=== PATIENT | male | born 1990 | race Caucasian/White ===

== ENCOUNTER 2021-07-04 16:22 | Emergency (ER) | payer MEDICAID, SELFPAY ==
[2021-07-04] VITALS (8 sets, daily range): BP systolic 140–161; BP diastolic 83–102; PULSE 71–106; RESP 14–18; TEMP 36.4–36.6; O2SAT 95–98; BMI 36.3
--- NOTE | 2021-07-04 18:05 | EKG12_ITS ---
Test Reason : MEDICAL CLEARANCE Blood Pressure : / mmHG Vent. Rate : 086 BPM Atrial Rate : 086 BPM P-R Int : 140 ms QRS Dur : 096 ms QT Int : 366 ms P-R-T Axes : 040 078 036 degrees QTc Int : 437 ms Normal sinus rhythm Normal ECG Confirmed by CHAGO BANKS, VARSHA ([id number]), online editor KARELY DOHETRY ([id number]) on 07/08/2021 9:12:13 AM Referred By: Confirmed By:VARSHA ANDERS MD
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
[2021-07-04 20:14] LABS: Absolute Lymphocyte Count 2.51 X10^3/uL (0.83-4.51); Absolute Neutrophil Count 5.7 X10^3/uL (2.0-7.7); Basophil# 0.04 X10^3/uL; Basophil% 0.5 % (0-1); Eosinophil# 0.23 X10^3/uL; Eosinophils% 2.6 % (0-5); Hematocrit 45.1 % (40-54); Hemoglobin 14.3 g/dL (13.0-16.5); Lymphocyte # 2.51 X10^3/ul (0.83-4.51); Lymphocyte % 28.3 % (19-41); Mean Corp Hgb Conc 31.7 g/dL (32-36); Mean Corpuscular Hgb 27.5 pg (27.0-32.0); Mean Corpuscular Volume 86.7 fL (80-94); Mean Platelet Vol. 11.2 fl (6.2-12.0); Monocyte% 4.5 % (0-10); NRBC Flagged by Analyzer 0 % (0-5); Neutrophil # 5.65 X10^3/uL (2.7-7.7); Neutrophil % 63.8 % (47-70); Platelet Count 293 K/mm3 (150-450); RBC Distribution Width SD 44.5 fl (35.1-43.9); White Blood Count 8.9 K/mm3 (4.4-11.0)
[2021-07-04 20:20] LABS: AST(SGOT) 203 U/L (15-37); Alanine Aminotransfer ALT/SGPT 207 U/L (16-61); Alkaline Phosphatase 114 U/L (45-117); Anion Gap 6 (5-15); BUN 8 mg/dL (7-18); Chloride 108 mmol/L (98-107); Creatinine, Serum 0.89 mg/dL (0.70-1.30); EST Glomerular Filtration Rate 107 mL/min (>60); Est Glom Filt Rate - Afr Amer 129 mL/min (>60); Estimated Creatinine Clearance 166.29 ml/min; Globulin 4.2 g/dL (2.2-4.2); Glucose 78 mg/dL (74-106); Potassium 4.2 mmol/L (3.5-5.1); Protein, Total 8.2 g/dL (6.4-8.2); Sodium Level 140 mmol/L (136-145)
[2021-07-04 20:50] LABS: Amphetamine Urine VISTA NEGATIVE (<1000 ng/mL); Barbiturate Urine VISTA NEGATIVE (< 200 ng/mL); Benzodiazepine Urine VISTA NEGATIVE (< 200 ng/mL); Cocaine Urine VISTA NEGATIVE (< 300 ng/mL); Ecstacy Urine VISTA NEGATIVE (< 500 ng/mL); Methadone Urine VISTA NEGATIVE (< 300 ng/mL); PCP Urine VISTA NEGATIVE (< 25 ng/mL); THC Urine VISTA NEGATIVE (< 50 ng/mL); Vista UDS pH Range 5
--- NOTE | 2021-07-04 21:04 | CM.ED ---
RADHA made referral to [facility]. RADHA faxed referral packet to [facility]. Plan: Inpatient psych [facility]
--- NOTE | 2021-07-04 22:53 | CM.ED ---
SW received call from Stefanie at [facility]. They will admit patient. Admitting MD is Dr. Parsons and patient will go to [id number]. RN to RN [phone]. Staff updated. Plan: [facility]
[2021-07-05 00:09] VITALS: RESP 12
== END 2021-07-05 00:19 ==
PROVIDERS: Emergency Provider Emergency Medicine; PCP Family Medicine
DX: F60.3 Borderline personality disorder (principal); R45.851 Suicidal ideations; F41.9 Anxiety disorder, unspecified; F31.9 Bipolar disorder, unspecified; Z79.899 Other long term (current) drug therapy
CPT/HCPCS: 36415; 80048; 80053; 80307; 82077; 85025; 87426; 93005; 99285